=== PATIENT | female | born 1990 | race Caucasian/White ===

== ENCOUNTER 2019-04-03 11:34 | Emergency (ER) | payer OTHER ==
[~2019-04-03] VITALS: Ht 165.1 cm; Wt 102.8 kg
--- NOTE | 2019-04-03 13:25 | REP ---
Lumbar spine five views: There are no comparisons. Vertebral body heights, interspacing alignment are normal. There are no compression deformities. There is no spondylolysis. There is no spondylolisthesis. The pedicles and facets are unremarkable. Sacroiliac articulations are unremarkable. Impression: Negative lumbar spine. Electronically Signed by Art Nunn MD 04/03/2019 01:17 P
--- NOTE | 2019-04-03 13:26 | REP ---
Right knee five views : There is no fracture or dislocation. Mineralization and joint spaces are normal. There are no calcifications or foreign bodies. Impression: Negative right knee . Electronically Signed by Art Nunn MD 04/03/2019 01:18 P
[2019-04-03] MEDS ORDERED: MOBI4TAB PO (13:28)
[2019-04-03] MEDS ORDERED: PRED20TA PO (13:28)
[2019-04-03] MEDS ORDERED: CYCL10TA PO (13:28)
[2019-04-03 13:40] VITALS: BP 138/96
== END 2019-04-03 13:42 | disposition home or self-care (01) ==
LOC: M ED 11:34
DX: S80.211A Abrasion, right knee, initial encounter (principal); W00.0XXA Fall on same level due to ice and snow, initial encounter; Y92.018 Other place in single-family (private) house as the place of occurrence of the external cause; M54.5 Low back pain; M25.561 Pain in right knee; J45.909 Unspecified asthma, uncomplicated; Z87.891 Personal history of nicotine dependence

== ENCOUNTER → 2019-11-21 | Outpatient (REF) | payer OTHER ==
[~2019-11-21] MED LIST: CYCL-707 PO; MOBI4TAB PO; PRED20TA PO
[2019-11-21 16:44] LABS: BASO # 0.1 10^3/uL (0.0-0.2); BASO % 0.9 % (0.0-1.0); EOS # 0.5 10^3/uL (0.0-0.5); EOS % 7.6 % (0.0-3.0); HEMATOCRIT 39.6 % (36.0-47.0); HEMOGLOBIN 12.6 g/dl (12.0-15.5); LYMPH # 2.3 10^3/uL (1.5-5.0); LYMPH % 33.9 % (24.0-44.0); MEAN CORPUSCULAR HEMOGLOBIN 27.3 pg (27.0-33.0); MEAN CORPUSCULAR HGB CONC 31.8 g/dl (32.0-36.5); MEAN CORPUSCULAR VOLUME 85.9 fl (80.0-96.0); MONO # 0.4 10^3/uL (0.0-0.8); MONO % 6.2 % (0.0-5.0); NEUTROPHILS # 3.4 10^3/uL (1.5-8.5); PLATELET COUNT, AUTOMATED 379 10^3/uL (150-450); RED BLOOD COUNT 4.61 10^6/uL (4.00-5.40); WHITE BLOOD COUNT 6.7 10^3/uL (4.0-10.0)
[2019-11-21 17:14] LABS: ALBUMIN 3.6 GM/DL (3.2-5.2); ALT/SGPT 39 U/L (12-78); BILIRUBIN,TOTAL 0.3 MG/DL (0.2-1.0); BLOOD UREA NITROGEN 8 MG/DL (7-18); CALCIUM LEVEL 8.9 MG/DL (8.5-10.1); CARBON DIOXIDE LEVEL 25 MEQ/L (21-32); CHLORIDE LEVEL 109 MEQ/L (98-107); CREATININE FOR GFR 0.81 MG/DL (0.55-1.30); FREE T4 1.13 NG/DL (0.76-1.46); GLOMERULAR FILTRATION RATE > 60.0 (>60); GLUCOSE, FASTING 93 MG/DL (70-100); SODIUM LEVEL 140 MEQ/L (136-145); TOTAL PROTEIN 7.3 GM/DL (6.4-8.2)
== END ==
LOC: M LAB REF 16:17
PROVIDERS: ATTEND Physician Assistant
DX: G40.909 Epilepsy, unspecified, not intractable, without status epilepticus (principal)

== ENCOUNTER 2022-03-06 17:42 | Outpatient (CLI) | payer OTHER, SELFPAY ==
[~2022-03-06] VITALS: Ht 167.6 cm; Wt 116.3 kg
[~2022-03-06 17:42] MED LIST changes: +ACET-683 PO; +ADVA45AE INH; +ALBU2.5V10 INH; +ALBU8.5H INH; +GNP28TAB2 PO; +IBUP80TA PO; +KEPP10002 PO
[2022-03-06 18:24] VITALS: BP 126/65
[2022-03-06] MEDS ORDERED: HOME MED LIST COMPLETE! XX SCH (19:10)
[2022-03-06 19:54] VITALS: BP 135/93
[2022-03-06 20:50] VITALS: BP 125/78
[2022-03-06] MEDS ORDERED: FLUCONAZOLE 50MG TABLET PO ONE (21:40)
== END 2022-03-06 21:56 | disposition home or self-care (01) ==
LOC: M LDO 17:42
PROVIDERS: ATTEND Obstetrics & Gynecology
DX: O23.593 Infection of other part of genital tract in pregnancy, third trimester (principal); Z3A.33 33 weeks gestation of pregnancy; Z91.040 Latex allergy status
CPT/HCPCS: 59025; 76819; 76820; 81002; G0463

== ENCOUNTER → 2022-03-13 | Outpatient (CLI) | payer OTHER ==
[2022-03-13 14:36] LABS: BASO % 0.3 % (0.0-1.0); EOS # 0.1 10^3/uL (0.0-0.5); EOS % 1.3 % (0.0-3.0); HEMATOCRIT 32.5 % (36.0-47.0); HEMOGLOBIN 10.3 g/dl (12.0-15.5); LYMPH % 22.8 % (24.0-44.0); MEAN CORPUSCULAR HEMOGLOBIN 26.8 pg (27.0-33.0); MEAN CORPUSCULAR HGB CONC 31.7 g/dl (32.0-36.5); MEAN CORPUSCULAR VOLUME 84.4 fl (80.0-96.0); MONO # 0.7 10^3/uL (0.0-0.8); MONO % 8.3 % (2.0-8.0); NEUTROPHILS # 5.9 10^3/uL (1.5-8.5); NEUTROPHILS % 66.1 % (36.0-66.0); PLATELET COUNT, AUTOMATED 262 10^3/uL (150-450); RED BLOOD COUNT 3.85 10^6/uL (4.00-5.40); WHITE BLOOD COUNT 8.9 10^3/uL (4.0-10.0)
[2022-03-13 15:41] LABS: HEMOGLOBIN A1c 5.8 %
[2022-03-13 18:07] LABS: HEPATITIS B SURFACE ANTIGEN NEGATIVE (NEGATIVE); HIV 1&2 SCREEN CENTAUR NEGATIVE (NEGATIVE)
== END ==
LOC: M LAB 12:32
PROVIDERS: ATTEND Obstetrics & Gynecology
DX: Z34.90 Encounter for supervision of normal pregnancy, unspecified, unspecified trimester (principal); Z3A.00 Weeks of gestation of pregnancy not specified

== ENCOUNTER 2024-07-03 19:50 | Emergency (ER) | payer OTHER, SELFPAY ==
[~2024-07-03] VITALS: Ht 167.6 cm; Wt 111.8 kg
[2024-07-03 21:07] LABS: HCG, SERUM QUALITATIVE NEGATIVE (NEGATIVE)
[2024-07-03 21:09] LABS: ALBUMIN 3.7 G/DL (3.2-5.2); ALKALINE PHOSPHATASE 66 U/L (35-104); ALT/SGPT 31 U/L (7.0-40); AST/SGOT 15 U/L (<34); BILIRUBIN,TOTAL 0.4 MG/DL (0.3-1.2); BLOOD UREA NITROGEN 10 MG/DL (9-23); CALCIUM LEVEL 9.4 MG/DL (8.5-10.1); CARBON DIOXIDE LEVEL 27 MMOL/L (20-31); CHLORIDE LEVEL 108 MMOL/L (98-107); CREATININE FOR GFR 0.67 MG/DL (0.55-1.30); GLOMERULAR FILTRATION RATE > 60.0 (>60); GLUCOSE, FASTING 110 MG/DL (60-100); POTASSIUM SERUM 3.6 MMOL/L (3.5-5.1); SODIUM LEVEL 143 MMOL/L (136-145); TOTAL PROTEIN 7.3 G/DL (5.7-8.2)
[2024-07-03 21:11] LABS: HEPATITIS B SURFACE ANTIBODY POSITIVE (POSITIVE)
[2024-07-03 21:23] LABS: HEPATITIS B SURFACE ANTIGEN NEGATIVE (NEGATIVE)
[2024-07-03 21:35] LABS: HIV 1&2 SCREEN NEGATIVE (NEGATIVE)
[2024-07-03 21:44] LABS: HEPATITIS C VIRUS ABY INDEX 0.13 INDEX (<0.8)
[2024-07-03 21:54] VITALS: BP 132/88; TEMP 98.2; O2SAT 99
[2024-07-03 22:23] LABS: Trichomonas vaginalis (AMP) NOT DETECTED (NEGATIVE)
[2024-07-03 22:46] LABS: GC DNA AMPLIFICATION NEGATIVE (NEGATIVE)
== END 2024-07-03 22:00 | disposition home or self-care (01) ==
LOC: M ED 19:50
DX: T76.21XA Adult sexual abuse, suspected, initial encounter (principal); M32.9 Systemic lupus erythematosus, unspecified; R51.9 Headache, unspecified; J45.909 Unspecified asthma, uncomplicated; Z91.040 Latex allergy status

== ENCOUNTER 2024-08-06 08:13 | Emergency (ER) | payer MEDICAID, OTHER, SELFPAY ==
[~2024-08-06] VITALS: Ht 165.1 cm; Wt 112.4 kg
[2024-08-06] MEDS ORDERED: prenatal (08:21)
[2024-08-06 09:05] LABS: BASO # 0.1 10^3/uL (0.0-0.2); BASO % 0.7 % (0.0-1.0); EOS # 0.3 10^3/uL (0.0-0.5); EOS % 4.6 % (0.0-3.0); HEMATOCRIT 35.7 % (36.0-47.0); HEMOGLOBIN 11.8 g/dl (12.0-15.5); LYMPH # 2.4 10^3/uL (1.5-5.0); LYMPH % 34.2 % (24.0-44.0); MEAN CORPUSCULAR HEMOGLOBIN 28.1 pg (27.0-33.0); MEAN CORPUSCULAR HGB CONC 33.1 g/dl (32.0-36.5); MONO # 0.5 10^3/uL (0.0-0.8); MONO % 6.5 % (2.0-8.0); NEUTROPHILS # 3.7 10^3/uL (1.5-8.5); NEUTROPHILS % 53.4 % (36.0-66.0); PLATELET COUNT, AUTOMATED 312 10^3/uL (150-450); WHITE BLOOD COUNT 6.9 10^3/uL (4.0-10.0)
[2024-08-06 10:11] LABS: KETONE, URINE AUTO RFX NEGATIVE (NEGATIVE); LEUKOCYTE ESTERASE UR AUTO RFX 1+ (NEGATIVE); MUCUS, URINE RFX SMALL (NEGATIVE); NITRITE, URINE AUTO RFX NEGATIVE (NEGATIVE); RBC, URINE AUTO RFX 3 /HPF (0-3); SQUAM EPITHELIAL CELL UR AURFX 7 /HPF (0-6); WBC, URINE AUTO RFX 26 /HPF (0-3)
[2024-08-06 10:52] VITALS: BP 141/92; TEMP 98.1; O2SAT 98
[2024-08-09] MEDS ORDERED: CEFD300C PO (08:04)
== END 2024-08-06 10:56 | disposition home or self-care (01) ==
LOC: M ED 08:13
DX: O20.0 Threatened abortion (principal); J45.909 Unspecified asthma, uncomplicated; M32.9 Systemic lupus erythematosus, unspecified; G40.909 Epilepsy, unspecified, not intractable, without status epilepticus; Z91.040 Latex allergy status; Z3A.00 Weeks of gestation of pregnancy not specified

== ENCOUNTER → 2024-08-08 | Outpatient (CLI) | payer MEDICAID ==
[~2024-08-08] MED LIST changes: +CEFD300C PO; +prenatal
== END ==
LOC: M LAB 09:39
PROVIDERS: ATTEND Physician Assistant
DX: O20.0 Threatened abortion (principal)

== ENCOUNTER → 2024-08-10 | Outpatient (CLI) | payer MEDICAID | LOC: M PLALAB 07:37 | PROVIDERS: ATTEND Advanced Practice Midwife | DX: O20.9 Hemorrhage in early pregnancy, unspecified (principal) ==

== ENCOUNTER → 2024-08-31 | Outpatient (CLI) | payer OTHER ==
[~2024-08-31] MED LIST changes: +ACET325C5 PO; +ADVA1AER9 INH; +AMOX875T2 PO; +BENZ200C70 PO; +FOLI1TAB11 PO; +PREN1CHW6 PO; +PRENTAB9 PO
== END ==
LOC: M PLALAB 15:44
PROVIDERS: ATTEND Advanced Practice Midwife
DX: O02.1 Missed abortion (principal); Z3A.00 Weeks of gestation of pregnancy not specified